=== PATIENT | female | born 1965 | race African-American/Black ===

== ENCOUNTER 2022-08-04 08:05 | Emergency (ER) | payer OTHER ==
[~2022-08-04] VITALS: Ht 167.6 cm; Wt 77.1 kg
[2022-08-04 08:16] VITALS: BP 135/70
[2022-08-04] MEDS ORDERED: AMOX-430 PO (08:21)
[2022-08-04] MEDS ORDERED: TDAP [DIPH/PERTUSSIS/TET] 0.5 ML VIAL IM ONE ×2 (08:30→08:51)
[2022-08-04] MEDS ORDERED: IBUPROFEN 400 MG TABLET PO ONE (08:30)
[2022-08-04] MEDS ORDERED: IBUPROFEN 400 MG TABLET ONE (08:51)
--- NOTE | 2022-08-04 09:25 | NUR ---
Patient discharged to home in stable condition. Written and verbal after care instructions given. Patient verbalizes understanding of instruction.
== END 2022-08-04 09:28 | disposition home or self-care (01) ==
LOC: ER 08:10
DX: S80.812A Abrasion, left lower leg, initial encounter (principal); W54.0XXA Bitten by dog, initial encounter; Y93.89 Activity, other specified; Y92.89 Other specified places as the place of occurrence of the external cause; Y99.8 Other external cause status
CPT/HCPCS: 90715

== ENCOUNTER 2022-08-06 23:05 | Emergency (ER) | payer OTHER ==
[~2022-08-06] VITALS: Ht 167.6 cm; Wt 70.8 kg
[~2022-08-06 23:05] MED LIST: AMOX-430 PO
[2022-08-06 23:52] VITALS: BP 132/78
[2022-08-07] MEDS ORDERED: IBUPROFEN 600 MG TABLET PO ONE (00:30)
== END 2022-08-07 00:31 | disposition home or self-care (01) ==
LOC: ER 23:08
DX: R22.9 Localized swelling, mass and lump, unspecified (principal); Z60.2 Problems related to living alone; Z79.899 Other long term (current) drug therapy

== ENCOUNTER 2022-08-27 14:25 | Emergency (ER) | payer OTHER ==
[~2022-08-27] VITALS: Ht 170.2 cm; Wt 68.9 kg
[2022-08-27 14:51] VITALS: BP 110/70
[2022-08-27] MEDS ORDERED: ACET325C7 PO (15:02)
== END 2022-08-27 15:46 | disposition home or self-care (01) ==
LOC: ER 14:33
DX: D17.1 Benign lipomatous neoplasm of skin and subcutaneous tissue of trunk (principal); D17.21 Benign lipomatous neoplasm of skin and subcutaneous tissue of right arm; Z60.2 Problems related to living alone; Z79.899 Other long term (current) drug therapy

== ENCOUNTER 2023-03-07 06:58 | Emergency (ER) | payer OTHER ==
[~2023-03-07 06:58] MED LIST changes: +ACET325C7 PO
--- NOTE | 2023-03-07 07:20 | NUR ---
PT CALLED TO TRIAGED, AGITATED. ATTEMPTED TO GET VITALS BUT WILL NOT ALLOW TO. WALKED OUT. NOOT SEEN BY ERMD.
== END 2023-03-07 07:44 | disposition left against medical advice (07) ==
LOC: ER 07:04
DX: Z53.21 Procedure and treatment not carried out due to patient leaving prior to being seen by health care provider (principal)